=== PATIENT | female | born 1995 | race Caucasian/White ===

== ENCOUNTER 2020-09-02 19:38 | Outpatient (CLI) | payer BC ==
[~2020-09-02] VITALS: Ht 167.6 cm; Wt 65.8 kg
== END 2020-09-02 20:45 | disposition home or self-care (01) ==
LOC: LDOP 19:38
PROVIDERS: ATTEND Obstetrics & Gynecology Maternal & Fetal Medicine
DX: O36.8120 Decreased fetal movements, second trimester, not applicable or unspecified (principal); Z3A.21 21 weeks gestation of pregnancy
CPT/HCPCS: 99211; G0463